=== PATIENT | male | born 1980 | race Caucasian/White ===

== ENCOUNTER 2017-03-15 12:29 | Emergency (ER) | payer SELFPAY ==
--- NOTE | 2017-03-15 12:58 | ER Document Report ---
ED Medical Screen (RME) - General Chief Complaint: Abdominal Pain Stated Complaint: STOMACH PAIN Time Seen by Provider: 03/15/17 12:56 Notes: Patient states in the last several weeks she has developed abdominal pain that goes through to his back. He also has noticed that his eyes are yellow. He states he went to a hospital in [place] where they did a CAT scan. He states he was told that he has a fatty liver but does not know any of the other results of the CAT scan. He brings a disc with him but no report. He was also diagnosed at that time with alcoholic cirrhosis. He states he feels the symptoms are getting worse. He states that he now drinks 1-224 ounce beers per day. He denies any drug use. TRAVEL OUTSIDE OF THE [place] IN LAST 30 DAYS: No Past Medical History - Social History Chew tobacco use (# tins/day): No Frequency of alcohol use: "trying to quit on my own" Drug Abuse: None - Past Medical History Cardiac Medical History: Reports: Hx Hypertension Pulmonary Medical History: Reports: Hx Asthma Renal/ Medical History: Denies: Hx Peritoneal Dialysis Physical Exam - Vital signs Vitals: Temp Pulse Resp BP Pulse Ox 98.8 F 103 H 16 147/101 H 99 03/15/17 12:34 03/15/17 12:34 03/15/17 12:34 03/15/17 12:34 03/15/17 12:34 Course - Vital Signs Vital signs: Temp Pulse Resp BP Pulse Ox 98.8 F 103 H 16 147/101 H 99 03/15/17 12:34 03/15/17 12:34 03/15/17 12:34 03/15/17 12:34 03/15/17 12:34
[2017-03-15 13:38] LABS: ABSOLUTE BASOPHILS # (AUTO) 0.1 10^3/uL (0.0-0.2); ABSOLUTE EOSINOPHILS # (AUTO) 0.1 10^3/uL (0.0-0.6); ABSOLUTE LYMPHOCYTES (AUTO) 2.3 10^3/uL (0.5-4.7); ABSOLUTE MONOCYTES (AUTO) 1.5 10^3/uL (0.1-1.4); ABSOLUTE NEUT (AUTO) 9.3 10^3/uL (1.7-8.2); BASOPHILS % (AUTO) 0.8 % (0-2); EOSINOPHILS % (AUTO) 0.5 % (0-6); HEMATOCRIT 43.7 % (37.9-51.0); HEMOGLOBIN 15.4 g/dL (13.5-17.0); HGB HCT DIFFERENCE 2.5; LYMPHOCYTES % (AUTO) 17.4 % (13-45); MEAN CORPUSCULAR HEMOGLOBIN 32.3 pg (27.0-33.4); MEAN CORPUSCULAR HGB CONC 35.2 g/dL (32.0-36.0); MEAN CORPUSCULAR VOLUME 92 fl (80-97); MONOCYTES % (AUTO) 11.1 % (3-13); RED BLOOD COUNT 4.75 10^6/uL (4.35-5.55); RED CELL DISTRIBUTION WIDTH 13.4 % (11.5-14.0); SEGMENTED NEUTROPHILS % (AUTO) 70.2 % (42-78); WHITE BLOOD COUNT 13.3 10^3/uL (4.0-10.5)
[2017-03-15 13:44] LABS: APPEARANCE,URINE CLEAR; BILIRUBIN,URINE MODERATE (NEGATIVE); GLUCOSE, URINE NEGATIVE (NEGATIVE); KETONES,URINE NEGATIVE (NEGATIVE); LEUKOCYTE ESTERASE,URINE NEGATIVE (NEGATIVE); NITRITE,URINE NEGATIVE (NEGATIVE); PROTEIN,URINE NEGATIVE (NEGATIVE); URINE SPECIFIC GRAVITY 1.018
[2017-03-15 13:53] LABS: URINE BARBITURATES SCREEN NEGATIVE; URINE METHADONE SCREEN NEGATIVE; URINE OPIATES LOW UNCONFIRMED POSITIVE; URINE PHENCYCLIDINE SCREEN NEGATIVE
[2017-03-15 14:29] LABS: ALANINE AMINOTRANSFERASE 84 U/L (21-72); ALBUMIN 3.4 g/dL (3.5-5.0); ALCOHOL 56 mg/dL (NONE DETECTED); ALKALINE PHOSPHATASE 179 U/L (38-126); ANION GAP 12 (5-19); ASPARTATE AMINO TRANSFERASE 209 U/L (17-59); BILIRUBIN,DIRECT 9.3 mg/dL (0.0-0.4); BILIRUBIN,TOTAL 11.7 mg/dL (0.2-1.3); BLOOD UREA NITROGEN 6 mg/dL (7-20); CALCIUM 8.4 mg/dL (8.4-10.2); CARBON DIOXIDE 25 mmol/L (22-30); CHLORIDE 100 mmol/L (98-107); CREATININE RESULT 0.63 mg/dL (0.52-1.25); GLUCOSE 125 mg/dL (75-110); LIPASE 82.3 U/L (23-300); POTASSIUM 3.9 mmol/L (3.6-5.0); SODIUM 137.3 mmol/L (137-145); TOTAL PROTEIN 6.6 g/dL (6.3-8.2)
[2017-03-15] MEDS ORDERED: MORPHINE SULFATE 10 MG/ML INJ IV ONE ×2 (14:49→16:02)
[2017-03-15] MEDS ORDERED: NORMAL SALINE 1000 ML 1,000 ML IV ONE (14:50)
[2017-03-15] MEDS ORDERED: ONDANSETRON HCL INJ/PF 4 MG/2 ML SDV IV ONE (14:50)
--- NOTE | 2017-03-15 14:53 | RADIOLOGY REPORT (SQ) ---
EXAM DESCRIPTION: U/S ABDOMEN LIMITED W/O DOP COMPLETED DATE/TIME: 03/15/2017 2:33 pm REASON FOR STUDY: ruq/back pain COMPARISON: None. TECHNIQUE: Dynamic and static grayscale images acquired of the right upper quadrant and recorded on PACS. Additional selected color Doppler and spectral images recorded. LIMITATIONS: Study limited due to acoustical interference from fat or from air in the bowel. FINDINGS: PANCREAS: Obscured. LIVER: 20.4 cm. Echotexture is coarse with increased echogenicity consistent with fatty infiltration . No masses. LIVER VASCULATURE: Flow direction not documented. GALLBLADDER: Sludge. Gallbladder wall thickening. ULTRASOUND-DETECTED VEGA'S SIGN: Negative. INTRAHEPATIC DUCTS AND COMMON DUCT: Obscured. INFERIOR VENA CAVA: Normal flow. AORTA: No aneurysm. RIGHT KIDNEY: Normal size. Normal echogenicity. No solid or suspicious masses. No hydronephros is. No calcifications. PERITONEAL CAVITY AND RIGHT PLEURAL SPACE: No ascites or effusions. OTHER: No other significant finding. IMPRESSION: 1. Gallbladder sludge. Cholecystitis. 2. Fatty liver. TECHNICAL DOCUMENTATION: JOB ID: [id number] [employer]- All Rights Reserved
[2017-03-15] MEDS ORDERED: LORAZEPAM INJ 2 MG/1 ML VIAL IV ONE (16:03)
[2017-03-15] MEDS ORDERED: PIPERACILLIN/TAZOBACTAM 3.375 GM VIAL IV ONE (16:22)
--- NOTE | 2017-03-15 16:39 | RADIOLOGY REPORT (SQ) ---
EXAM DESCRIPTION: CT ABD/PELVIS NO ORAL OR IV COMPLETED DATE/TIME: 03/15/2017 4:22 pm REASON FOR STUDY: distention pain perf COMPARISON: None. TECHNIQUE: CT scan of the abdomen and pelvis performed without intravenous or oral contrast. Images reviewed with lung, soft tissue, and bone windows. Reconstructed coronal and sagittal MPR images revi ewed. All images stored on PACS. All CT scanners at this facility use dose modulation, iterative reconstruction, and/or weight based d osing when appropriate to reduce radiation dose to as low as reasonably achievable (ALARA). [facility]: Dose Right [facility]: CareDose [facility]: Dose Right [facility]: Teradose 4D [facility]: im3D RADIATION DOSE: 12.9mGy. LIMITATIONS: None. FINDINGS: LOWER CHEST: No significant findings. No nodules or infiltrates. NON-CONTRASTED LIVER, SPLEEN, ADRENALS: The liver is enlarged with diffuse decreased attenuation. Sp lenomegaly is present. The adrenal glands are normal. PANCREAS: No masses. No peripancreatic inflammatory changes. GALLBLADDER: A single small calcification is seen on image 39 series 3. RIGHT KIDNEY AND URETER: No suspicious masses. Assessment limited by lack of IV contrast. No signif icant calcifications. No hydronephrosis or hydroureter. LEFT KIDNEY AND URETER: No suspicious masses. Assessment limited by lack of IV contrast. No signifi cant calcifications. No hydronephrosis or hydroureter. AORTA AND RETROPERITONEUM: No aneurysm. No retroperitoneal masses or adenopathy. BOWEL AND PERITONEAL CAVITY: No obvious masses. There is suggestion of some wall thickening versus m ere nondistention in the distal ileum and in the right colon There is some free fluid. This is best seen on image 69 series 3 and image 41 series 601. APPENDIX: Not identified. PELVIS, BLADDER, AND ABDOMINAL WALL:Free fluid. Bladder normal. BONES: No significant findings. OTHER: No other significant finding. IMPRESSION: 1. Hepatosplenomegaly with fatty infiltration of the liver and with ascites. 2. Questionable wall thickening in the distal ileum and right colon. Is there evidence of or clinic al history of inflammatory bowel disease? It is possible this appearance is merely secondary to nond istention. COMMENT: Quality ID # [id number]: Final reports with documentation of one or more dose reduction techniques (e.g., Automated exposure control, adjustment of the mA and/or kV according to patient size, use of iterative reconstruction technique) TECHNICAL DOCUMENTATION: JOB ID: [id number] [employer]- All Rights Reserved
--- NOTE | 2017-03-15 18:04 | ER Document Report ---
ED General <LAXMI MARTINEZ E - Last Filed: 03/15/17 22:09> - General Information source: Patient, Relative TRAVEL OUTSIDE OF THE [place] IN LAST 30 DAYS: No - HPI Onset: Other - 6 weeks Onset/Duration: Sudden Quality of pain: Cramping, Sharp, Throbbing Severity: Severe Pain Level: 4 Associated symptoms: Nonproductive cough, Fever, Nausea Exacerbated by: Supine, Movement Relieved by: Other - Nothing Similar symptoms previously: Yes Recently seen / treated by doctor: Yes - [place] as stated previously. <EDWIN ROSEN T - Last Filed: 03/15/17 23:30> - General Chief Complaint: Abdominal Pain Stated Complaint: STOMACH PAIN Time Seen by Provider: 03/15/17 12:56 Notes: Patient is a 36-year-old male who has a very convoluted history. Patient is just moved to the [place] area has been living in [place] previously to this. Has only been here approximately a week and a half. Patient gives a story of going to a facility in [place] where they did a workup on him diagnosed him with possible early cirrhosis secondary to alcohol use and told her to follow-up outpatient. Patient states he does drink but he is cut back extensively he only does 124 ounce beer a day now and he has not had a drink since last evening. Patient states primary reason for coming is that he has bilateral upper flank pain on his back that is getting worse seems to be increased only when laying down and after eating. Patient makes the association to fried foods. also states that he appears to be somewhat distended in the abdomen and that he is eating little bits at a time and so she does not believe it is gaining weight because of over intake. Patient also states that he has some mild jaundice and had that the last time he was seen in [place]. Patient states he is becoming perplexed as to why he is having this pain all the time. He states and admits to having a history of hypertension treated with lisinopril and when he was in [place] they wrote him for Flexeril and tramadol which she is used up. Denies any known family history with the exception of a grandfather or uncle of cirrhosis secondary to alcohol. No chest Patient had a CT scan done at the same time there I taken it to CT they attempted to download and for some reason it will not download to our files therefore we will probably add on a CT as well. (EDWIN ROSEN) - Related Data Allergies/Adverse Reactions: No Known Allergies Allergy (Unverified 03/15/17 12:57) Home Medications: Current Home Medications Lisinopril [Lisinopril] 1 tab PO DAILY 03/15/17 [History] Past Medical History - Social History Family History: Reviewed & Not Pertinent <LAXMI MARTINEZ - Last Filed: 03/15/17 22:09> - General Information source: Patient, Relative - Social History Smoking Status: Current Every Day Smoker Cigarette use (# per day): Yes - 1 pack a day Chew tobacco use (# tins/day): No Smoking Education Provided: Yes Frequency of alcohol use: Heavy Drug Abuse: None Occupation: setup technician Lives with: Family Patient has suicidal ideation: No Patient has homicidal ideation: No - Past Medical History Cardiac Medical History: Reports: Hx Hypertension Pulmonary Medical History: Reports: Hx Asthma EENT Medical History: Reports: None Neurological Medical History: Reports: None Renal/ Medical History: Reports: None. Denies: Hx Peritoneal Dialysis Malignancy Medical History: Reports None Musculoskeltal Medical History: Reports Hx Muscle Spasm Skin Medical History: Reports None Traumatic Medical History: Reports: None Infectious Medical History: Reports: None Surgical Hx: Negative <EDWIN ROSEN - Last Filed: 03/15/17 23:30> Review of Systems - Review of Systems Constitutional: No symptoms reported EENT: Other - Sclera shows jaundice Cardiovascular: No symptoms reported Respiratory: No symptoms reported Gastrointestinal: Abdomen distended, Abdominal pain, Nausea, Vomiting Genitourinary: No symptoms reported Male Genitourinary: No symptoms reported Musculoskeletal: Back pain Skin: No symptoms reported Hematologic/Lymphatic: No symptoms reported Neurological/Psychological: No symptoms reported -: Yes All other systems reviewed and negative <EDWIN ROSEN - Last Filed: 03/15/17 23:30> Physical Exam - Vital signs Interpretation: Hypertensive, Tachycardic - HEENT Head: Normocephalic, Atraumatic Conjunctiva: Icteric Cornea: Normal Extraocular movements intact: Yes Eyelashes: Normal Tympanic membrane: Normal Mouth/Lips: Normal Mucous membranes: Normal, Moist Pharynx: Normal Neck: Normal - Respiratory Respiratory status: No respiratory distress Chest status: Nontender Breath sounds: Normal Chest palpation: Normal - Cardiovascular Rhythm: Tachycardia Heart sounds: Normal auscultation Murmur: No - Abdominal Inspection: Normal Bowel sounds: Normal Tenderness: Tender, Yusuf's sign Organomegaly: No organomegaly <EDWIN ROSEN - Last Filed: 03/15/17 23:30> - Vital signs Vitals: Temp Pulse Resp BP Pulse Ox 98.8 F 103 H 16 147/101 H 99 03/15/17 12:34 03/15/17 12:34 03/15/17 12:34 03/15/17 12:34 03/15/17 12:34 Course - Laboratory Result Diagrams: 03/15/17 13:09 03/15/17 13:09 <LAXMI MARTINEZ - Last Filed: 03/15/17 22:09> - Laboratory Result Diagrams: 03/15/17 13:09 03/15/17 13:09 - Diagnostic Test Radiology reviewed: Reports reviewed <EDWIN ROSEN - Last Filed: 03/15/17 23:30> - Re-evaluation Re-evalutation: 03/15/17 20:25: Patient is a 36-year-old male, past medical history heavy alcohol abuse and early cirrhosis, presents with diffuse abdominal pain, worsening in the right upper quadrant. Ultrasound shows gallbladder sludge and signs of cholecystitis. His direct and indirect bilirubin are elevated, concerning for choledocholithiasis. Spoke to the surgicalist recreation superintendent, Dr. Gates, who evaluated the patient and recommends transfer to a tertiary care center due to the complexity of this surgery. DENYS Rosen, had spoken to [facility] at 19:30. Called back at 21:15 because I had not heard back from accepting surgeon. The transfer center so that the surgeon is in 2 trauma surgeries currently and will call back. 03/15/17 21:32 Placed call to [facility] Transfer Center and awaiting callback. 03/15/17 21:[address] Price (Surgeon at [facility]) and she is recommending speaking to medicine due to evidence of cirrhosis on labs and she will be happy to consult. She does not think that the gallbladder needs emergently taken out at this time. 03/15/17 22:[address] Rodriges (Resident at [facility]) and he has accepted patient under Dr. Liu's service. Pt remains comfortable at this time. Called back to [facility] and cancelled transfer. EMTALA form filled out. (LAXMI MARTINEZ) - Vital Signs Vital signs: Temp Pulse Resp BP Pulse Ox 98.8 F 88 16 110/75 96 03/15/17 12:35 03/15/17 18:26 03/15/17 18:26 03/15/17 18:26 03/15/17 18:26 - Laboratory Laboratory results interpreted by me: 03/15/17 03/15/17 03/15/17 13:09 13:09 13:22 WBC 13.3 H Absolute Neutrophils 9.3 H Absolute Monocytes 1.5 H BUN 6 L Glucose 125 H Total Bilirubin 11.7 H Direct Bilirubin 9.3 H AST 209 H ALT 84 H Alkaline Phosphatase 179 H Albumin 3.4 L Urine Bilirubin MODERATE H Urine Urobilinogen 4.0 H - Diagnostic Test Radiology results interpreted by me: 03/15/17 19:15 Ultrasound of the abdomen showed impression 1. Gallbladder sludge. Cholecystitis. 2. Fatty liver. CT abdomen pelvis without oral contrast or IV contrast showed #1 hepatosplenomegaly with fatty infiltration of the liver and with ascites 2. Questionable wall thickening in the distal ileum and right colon possible inflammatory bowel disease if chronic which is not. It is possible this could be secondary to nondistention. (EDWIN ROSEN) - Transfer of Care Notes: 03/15/17 19:17 Discussed the case with Dr. Martinez felt surgery consult was warranted. I contacted Dr. Gates and he has come down to see the patient and agrees patient needs to be n.p.o. tonight needs to be admitted to medicine and have him consult as well. After re-reviewing patient by Dr. Escobedo he felt that patient gave him this information earlier about amount of alcohol he drinks. States that he was told the patient drinks a sixpack a day where I was told patient drank [address] Gates feels patient needs tertiary care where they can handle withdrawal and feels that at this time admission for surgery may not be needed since patient abuses alcohol more than he indicated. We will contact the tertiary facilities to see about transfer. 03/15/17 19:26 03/15/17 19:[address] Gates we contacted and talk to Dr. Martinez who states we can do alcohol withdrawal here in the facility however since Dr. Gates feels he needs specialty care we will run this by our hospitalist here to see if they were willing to admit and monitor for withdrawal and recheck his labs in the morning. 03/15/17 20:21 I contacted [facility] and talk to the transfer person at that time. I informed her that our surgeon did not feel comfortable with having patient admitted here for alcohol withdrawal and possible emergency surgery which surgeon felt like he would end up in ICU and intubated. I have discussed this with my attending Dr. Martinez he is currently going to take over continuation of patient care at [facility] since have been waiting for a while for this referral service to contact us back. 03/15/17 23:28 (EDWIN ROSEN) Critical Care Note - Critical Care Note Total time excluding time spent on procedures (mins): 35 <LAXMI MARTINEZ - Last Filed: 03/15/17 22:09> Discharge <LAXMI MARTINEZ - Last Filed: 03/15/17 22:09> <EDWIN ROSEN - Last Filed: 03/15/17 23:30> - Discharge Clinical Impression: Cholecystitis, Elevated LFTs Condition: Stable Disposition: [facility]
[2017-03-15 18:27] VITALS: BP 110/75
[2017-03-15] MEDS ORDERED: HYDROMORPHONE HCL INJ/PF 2 MG/ML AMPULE IV ONE (20:17)
[2017-03-15] MEDS ORDERED: PIPERACILLIN/TAZOBACTAM 3.375 GM VIAL IV SCH (23:30)
[2017-03-16] MEDS ORDERED: ONDANSETRON HCL INJ/PF 4 MG/2 ML SDV IV ONE (00:26)
[2017-03-16] MEDS ORDERED: HYDROMORPHONE HCL INJ/PF 2 MG/ML AMPULE IV ONE (00:26)
--- NOTE | 2017-03-16 01:02 | PDOC CONSULTATION ---
Consultation Consult Date: 03/15/17 Consult reason:: Gall bladder sludge with thickened GB wall on uLTRASOUND History of Present Illness History of Present Illness: PRISCILLA QUACH is a 36 year old male who has been c/o lower back pains and epigastric pains for about a week.Denies N/V. He used to drink a lot and cut down to about 6 pack of beer a day in the past 1-2 weeks. Last drink was yesterday. Came to ED today because of increasing abdominal and back pains as well as his eyes more yellowish. His Total BIli is 11 with slightly elevated LFTs which most likely compatible with alcoholic cirrhosis. He had an US of GB which showed sludge and thickened GB wall but no Yusuf's sign and interpreted by the radiologist as acute cholecystitis. Past Medical History Cardiac Medical History: Reports: Hypertension Pulmonary Medical History: Reports: Asthma EENT Medical History: Reports: None Neurological Medical History: Reports: None Renal/ Medical History: Reports: None Malignancy Medical History: Reports: None Skin Medical History: Reports: None Traumatic Medical History: Reports: None Infectious Medical History: Reports: None Social History Lives with: Family Smoking Status: Current Every Day Smoker - Advance Directive Resuscitation Status: Full Code Family History Family History: Reviewed & Not Pertinent Parental Family History Reviewed: No Children Family History Reviewed: No Sibling(s) Family History Reviewed.: No Medication/Allergy Home Medications: Lisinopril [Lisinopril] 1 tab PO DAILY 03/15/17 Allergies/Adverse Reactions: No Known Allergies Allergy (Unverified 03/15/17 12:57) Review of Systems Constitutional: PRESENT: other - No fever or chills Eyes: PRESENT: other - Complaining of eyes getting yellowish Ears: PRESENT: other - No hearing problem Nose, Mouth, and Throat: PRESENT: other - No vertigo Cardiovascular: PRESENT: other - No chest pain Respiratory: PRESENT: other - No shortness of breath Gastrointestinal: PRESENT: abdominal pain, other Genitourinary: PRESENT: other - No dysuria Musculoskeletal: PRESENT: other - No joint swelling Integumentary: PRESENT: other - No rash Neurological: PRESENT: other - No syncopal episode Psychiatric: PRESENT: other - Appears calm Endocrine: PRESENT: other - No polydipsia no polyuria Hematologic/Lymphatic: PRESENT: other - No easy bruisability or lymphadenopathy Physical Exam Vital Signs: Temp Pulse Resp BP Pulse Ox 98.8 F 88 16 110/75 96 03/15/17 12:35 03/15/17 18:26 03/15/17 18:26 03/15/17 18:26 03/15/17 18:26 Intake & Output 03/14/17 03/15/17 03/16/17 06:59 06:59 06:59 Weight 89.5 kg General appearance: PRESENT: no acute distress Head exam: PRESENT: atraumatic, normocephalic Eye exam: PRESENT: scleral icterus Ear exam: PRESENT: normal external ear exam Mouth exam: PRESENT: moist, tongue midline Neck exam: PRESENT: full ROM Respiratory exam: PRESENT: clear to auscultation omari Cardiovascular exam: PRESENT: RRR Pulses: PRESENT: normal radial pulses Vascular exam: PRESENT: normal capillary refill GI/Abdominal exam: PRESENT: ascites, soft, tenderness - Positive epigastric tenderness Rectal exam: PRESENT: deferred Extremities exam: PRESENT: full ROM Musculoskeletal exam: PRESENT: ambulatory Neurological exam: PRESENT: alert, oriented to person, oriented to place, oriented to time, oriented to situation Psychiatric exam: PRESENT: anxious Skin exam: PRESENT: normal color, warm Results Laboratory Results: 03/15/17 13:09 03/15/17 13:09 03/15/17 03/15/17 03/15/17 13:09 13:09 13:22 WBC 13.3 H RBC 4.75 Hgb 15.4 Hct 43.7 MCV 92 MCH 32.3 MCHC 35.2 RDW 13.4 Plt Count 205 Seg Neutrophils % 70.2 Lymphocytes % 17.4 Monocytes % 11.1 Eosinophils % 0.5 Basophils % 0.8 Absolute Neutrophils 9.3 H Absolute Lymphocytes 2.3 Absolute Monocytes 1.5 H Absolute Eosinophils 0.1 Absolute Basophils 0.1 Sodium 137.3 Potassium 3.9 Chloride 100 Carbon Dioxide 25 Anion Gap 12 BUN 6 L Creatinine 0.63 Est GFR ( Amer) > 60 Est GFR (Non-Af Amer) > 60 Glucose 125 H Calcium 8.4 Total Bilirubin 11.7 H AST 209 H ALT 84 H Alkaline Phosphatase 179 H Total Protein 6.6 Albumin 3.4 L Lipase 82.3 Urine Color SOLA Urine Appearance CLEAR Urine pH 6.0 Ur Specific Shirley 1.018 Urine Protein NEGATIVE Urine Glucose (UA) NEGATIVE Urine Ketones NEGATIVE Urine Blood NEGATIVE Urine Nitrite NEGATIVE Ur Leukocyte Esterase NEGATIVE Urine WBC (Auto) 3 Urine RBC (Auto) 1 Impressions: Abdomen Ultrasound 03/15/17 12:56 IMPRESSION: 1. Gallbladder sludge. Cholecystitis. 2. Fatty liver. Abdomen/Pelvis CT 03/15/17 16:01 IMPRESSION: 1. Hepatosplenomegaly with fatty infiltration of the liver and with ascites. 2. Questionable wall thickening in the distal ileum and right colon. Is there evidence of or clinical history of inflammatory bowel disease? It is possible this appearance is merely secondary to nondistention. Assessment & Plan - Diagnosis (1) Alcoholic hepatitis with ascites Is this a current diagnosis for this admission?: Yes (2) Gallbladder sludge Is this a current diagnosis for this admission?: Yes (3) Alcohol abuse Is this a current diagnosis for this admission?: Yes - Time Time Spent: 30 to 50 Minutes - Plan Summary Plan Summary: Patient has active alcoholic hepatitis with elevated bilirubin and liver function tests. He has sludge in the gallbladder with thickening of the gallbladder wall. Patient does not have any definite tenderness in the right upper quadrant where the gallbladder is. Pains in the epigastric area likely due to fatty liver with distention of the liver capsule and pressure on the liver. Ultrasound showed sludge in the gallbladder and thickened gallbladder wall with possible acute cholecystitis. At this point patient does not need an emergency gallbladder surgery. This can be monitored closely. Unfortunately he needs surgery this hospital is not the best place for him to have this procedure done because of active alcoholic hepatitis and alcohol abuse. Is a high risk for alcohol withdrawal and mortality will be increased with surgery in this patient' s not considering the potential high risks for bleeding is again entails a good blood bank which we might be a little deficient. Because of all this condition and situation I think the best place for the patient will be in a tertiary care hospital will he will have an dedicated head orthopedic team physician as well as dedicated intensive care unit for his total care.
[2017-03-16] MEDS ORDERED: LORAZEPAM INJ 2 MG/1 ML VIAL IV ONE (01:43)
== END 2017-03-16 02:43 | disposition short-term general hospital (02) ==
LOC: ER 12:29
DX: K81.9 Cholecystitis, unspecified (principal); R79.89 Other specified abnormal findings of blood chemistry; R10.9 Unspecified abdominal pain; F10.10 Alcohol abuse, uncomplicated; F17.210 Nicotine dependence, cigarettes, uncomplicated
CPT/HCPCS: 96376; 99291; 96361; 96375; 96365; 36415; 80307 ×2; 83690; 85025; 80053; 81001; 76705; 74176; J2270; J1170 ×2; J2060 ×2; J2405 ×2; J7030; J2543 ×2